=== PATIENT | male | born 1975 | race Caucasian/White ===

== ENCOUNTER 2016-11-12 22:59 | Emergency (ER) | payer SELFPAY ==
[2016-11-13 00:15] LABS: BILIRUBIN NEGATIVE (NEGATIVE); BLOOD NEGATIVE Ery/uL (NEGATIVE); CLARITY CLEAR (CLEAR); COLOR YELLOW (YELLOW); GLUCOSE (U) NORMAL (NORMAL); KETONE (U) NEGATIVE (NEGATIVE); LEUKOCYTES NEGATIVE Leu/uL (NEGATIVE); NITRITE NEGATIVE (NEGATIVE); PROTEIN NEGATIVE (NEGATIVE); SPECIFIC GRAVITY 1.015 (1.001-1.030); UROBILINOGEN 0.2 mg/dL (0.2-1.0); pH 6.5 (5.0-9.0)
[2016-11-13 00:16] LABS: BASOPHIL 0.4 % (0-2); EOSINOPHIL 1.3 % (0-5); HCT 44.5 % (42.0-52.0); HGB 15.3 g/dl (13.2-18.0); LYMPHOCYTE 18.1 % (15-48); MCH 29.7 pg (25.0-31.0); MCHC 34.4 g/dL (32.0-36.0); MCV 86.4 fL (78.0-100.0); MONOCYTE 8.6 % (0-12); MPV 11.1 fL (6.0-9.5); NEUTROPHIL 71.6 % (41-80); PLT 223 K/uL (150-400); RBC 5.15 M/uL (4.70-6.00); RDW 12.6 % (11.5-14.0); WBC 11.3 K/uL (4.0-10.5)
[2016-11-13 00:25] LABS: BILIRUBIN - TOTAL 0.2 mg/dL (0.1-1.0); CREATININE 1.5 mg/dL (0.7-1.2)
== END 2016-11-13 01:37 | disposition home or self-care (01) ==
LOC: FER 22:59
PROVIDERS: Emergency Medicine
DX: E86.0 Dehydration (principal); R06.02 Shortness of breath; M10.9 Gout, unspecified; Z79.899 Other long term (current) drug therapy
CPT/HCPCS: 36415; 80053; 81003; 84443; 85025; 93005

== ENCOUNTER 2017-01-12 16:00 | Emergency (ER) | payer OTHER, SELFPAY ==
[2017-01-12 16:56] LABS: BILIRUBIN NEGATIVE (NEGATIVE); BLOOD NEGATIVE Ery/uL (NEGATIVE); CLARITY CLEAR (CLEAR); COLOR YELLOW (YELLOW); GLUCOSE (U) NORMAL (NORMAL); KETONE (U) NEGATIVE (NEGATIVE); LEUKOCYTES NEGATIVE Leu/uL (NEGATIVE); NITRITE NEGATIVE (NEGATIVE); PROTEIN NEGATIVE (NEGATIVE); SPECIFIC GRAVITY 1.025 (1.001-1.030); UROBILINOGEN 0.2 mg/dL (0.2-1.0)
[2017-01-12 17:04] LABS: BASOPHIL 0.4 % (0-2); EOSINOPHIL 0.6 % (0-5); HCT 47.7 % (42.0-52.0); HGB 16.5 g/dl (13.2-18.0); LYMPHOCYTE 10.8 % (15-48); MCH 29.5 pg (25.0-31.0); MCHC 34.6 g/dL (32.0-36.0); MCV 85.3 fL (78.0-100.0); MONOCYTE 10.5 % (0-12); MPV 10.4 fL (6.0-9.5); NEUTROPHIL 77.7 % (41-80); PLT 201 K/uL (150-400); RBC 5.59 M/uL (4.70-6.00); RDW 13.2 % (11.5-14.0); WBC 9.8 K/uL (4.0-10.5)
[2017-01-12 17:23] LABS: ALBUMIN 4.2 g/dL (3.5-5.0); BILIRUBIN - TOTAL 0.3 mg/dL (0.1-1.0); CREATININE 1.4 mg/dL (0.7-1.2); GLOBULIN (CALCULATION) 3.2 g/dL (2.2-4.2); POTASSIUM 4.3 mmol/L (3.5-5.1); TOTAL PROTEIN 7.4 g/dL (6.4-8.3)
== END 2017-01-12 19:55 | disposition home or self-care (01) ==
LOC: FER 16:00
PROVIDERS: Nurse Practitioner Family
DX: N20.0 Calculus of kidney (principal); R11.10 Vomiting, unspecified; M10.9 Gout, unspecified; Z79.899 Other long term (current) drug therapy
CPT/HCPCS: 36415; 80053; 81003; 82150; 83690; 85025; 87339; J2405

== ENCOUNTER 2021-05-31 01:15 | Emergency (ER) | payer OTHER ==
[~2021-05-31 01:15] MED LIST: IBUPROFEN800 MG PO; KEFLEX500 MG PO; KETOROLAC TROME10 MG PO; LISINOPRIL-HCT1 EAC1 PO; LISINOPRIL-HCT1 EACH PO; LOPRESSOR50 MG PO; MEDROL 4MG DOSEP4 MG PO; NORCO 5-325 TA1 EACH PO; NORVASC2.5 MG PO; NORVASC5 MG PO; SUBOXONE 8 MG-1 EACH PO; VIBRAMYCIN100 MG PO
[2021-05-31 01:49] LABS: BASOPHIL 0.8 % (0-2); HCT 49.1 % (42.0-52.0); HGB 16.4 g/dl (13.2-18.0); LYMPHOCYTE 15.6 % (15-48); MCH 28.7 pg (25.0-31.0); MCHC 33.4 g/dL (32.0-36.0); MCV 85.8 fL (78.0-100.0); MONOCYTE 11.6 % (0-12); MPV 10.2 fL (6.0-9.5); NEUTROPHIL 69.1 % (41-80); NRBC 0; PLT 303 K/uL (150-400); RBC 5.72 M/uL (4.70-6.00); RDW 12.8 % (11.5-14.0); WBC 11.6 K/uL (4.0-10.5)
[2021-05-31 02:09] LABS: ALBUMIN 3.4 g/dL (3.4-5.0); BILIRUBIN - TOTAL 0.4 mg/dL (0.2-1.0); BUN/CREAT RATIO (CALC) 18.1 RATIO; CREATININE 1.6 mg/dL (0.67-1.17); GLOBULIN (CALCULATION) 4.2 g/dL; POTASSIUM 3.8 mmol/L (3.5-5.1); TOTAL PROTEIN 7.6 g/dL (6.4-8.2)
[2021-05-31 02:11] LABS: BILIRUBIN NEGATIVE (NEGATIVE); BLOOD 1+ Ery/uL (NEGATIVE); CLARITY CLEAR (CLEAR); COLOR YELLOW (YELLOW); GLUCOSE (U) NORMAL (NORMAL); LEUKOCYTES NEGATIVE Leu/uL (NEGATIVE); NITRITE NEGATIVE (NEGATIVE); PROTEIN NEGATIVE (NEGATIVE); SPECIFIC GRAVITY >=1.030 (1.001-1.030); UROBILINOGEN 0.2 mg/dL (0.2-1.0)
[2021-05-31 02:23] LABS: URINARY RBC RARE
[2021-05-31 03:09] LABS: AMPHETAMINES POSITIVE (NEGATIVE); BARBITURATES NEGATIVE (NEGATIVE); ECSTASY (MDMA) POSITIVE (NEGATIVE); MARIJUANA (THC) NEGATIVE (NEGATIVE); METHADONE NEGATIVE (NEGATIVE); OPIATES NEGATIVE (NEGATIVE); OXYCODONE NEGATIVE (NEGATIVE)
[2021-05-31] MEDS ORDERED: CARAFATE1 GM PO (07:20)
[2021-05-31] MEDS ORDERED: LEVSIN-SL0.125 M1 SL (07:20)
[2021-05-31] MEDS ORDERED: ONDANSETRON ODT4 MG SL (07:20)
[2021-05-31] MEDS ORDERED: PERCOCET 5-3251 EACH PO (07:20)
== END 2021-05-31 07:58 | disposition home or self-care (01) ==
LOC: FER 01:15
PROVIDERS: Emergency Medicine Emergency Medical Services
DX: K44.9 Diaphragmatic hernia without obstruction or gangrene (principal); I12.9 Hypertensive chronic kidney disease with stage 1 through stage 4 chronic kidney disease, or unspecified chronic kidney disease; N18.2 Chronic kidney disease, stage 2 (mild)
CPT/HCPCS: 36415; 71045; 80053; 80305; 81001; 83605; 83690; 85025; C9113; J1170; J1885; J2270; J2405; J2550; J7030; Q9967

== ENCOUNTER 2021-06-21 22:59 | Day surgery (SDCO) | payer OTHER ==
[~2021-06-21] VITALS: Ht 172.7 cm; Wt 86.3 kg
[~2021-06-21 22:59] MED LIST changes: +BACTRIM DS TAB1 EACH PO; +CARAFATE1 GM PO; +COZAAR50 MG PO; +LEVSIN-SL0.125 M1 SL; +NORVASC 10MG TA10 MG PO; +ONDANSETRON ODT4 MG SL; +PERCOCET 5-3251 EACH PO; +PRILOSEC20 MG PO
[2021-06-21 23:33] LABS: BASOPHIL 1.1 % (0-2); HCT 56.9 % (42.0-52.0); LYMPHOCYTE 17.9 % (15-48); MCH 29.1 pg (25.0-31.0); MCHC 33.4 g/dL (32.0-36.0); MONOCYTE 11.9 % (0-12); MPV 11.3 fL (6.0-9.5); NEUTROPHIL 66.2 % (41-80); NRBC 0; PLT 276 K/uL (150-400); RBC 6.54 M/uL (4.70-6.00); RDW 13.4 % (11.5-14.0); WBC 8.8 K/uL (4.0-10.5)
[2021-06-21 23:56] LABS: ALBUMIN 4.2 g/dL (3.4-5.0); BILIRUBIN - TOTAL 0.4 mg/dL (0.2-1.0); BUN/CREAT RATIO (CALC) 9.5 RATIO; CREATININE 1.89 mg/dL (0.67-1.17); GLOBULIN (CALCULATION) 4.6 g/dL; TOTAL PROTEIN 8.8 g/dL (6.4-8.2)
[2021-06-22 06:25] LABS: BILIRUBIN NEGATIVE (NEGATIVE); BLOOD TRACE-INTACT Ery/uL (NEGATIVE); CLARITY CLEAR (CLEAR); COLOR YELLOW (YELLOW); GLUCOSE (U) NORMAL (NORMAL); LEUKOCYTES NEGATIVE Leu/uL (NEGATIVE); NITRITE NEGATIVE (NEGATIVE); PROTEIN NEGATIVE (NEGATIVE); SPECIFIC GRAVITY >=1.030 (1.001-1.030); UROBILINOGEN 0.2 mg/dL (0.2-1.0)
[2021-06-22 06:33] LABS: AMPHETAMINES POSITIVE (NEGATIVE); BARBITURATES NEGATIVE (NEGATIVE); ECSTASY (MDMA) POSITIVE (NEGATIVE); MARIJUANA (THC) NEGATIVE (NEGATIVE); METHADONE NEGATIVE (NEGATIVE); OPIATES POSITIVE (NEGATIVE); OXYCODONE NEGATIVE (NEGATIVE)
[2021-06-22 06:35] LABS: BACTERIA 1+; SQUAMOUS EPITHELIAL CELLS RARE
[2021-06-22 08:22] LABS: BASOPHIL 0.9 % (0-2); EOSINOPHIL 2.4 % (0-5); HCT 52.8 % (42.0-52.0); HGB 17.2 g/dl (13.2-18.0); LYMPHOCYTE 17.5 % (15-48); MCH 28.6 pg (25.0-31.0); MCHC 32.6 g/dL (32.0-36.0); MCV 87.7 fL (78.0-100.0); MONOCYTE 11.8 % (0-12); MPV 10.1 fL (6.0-9.5); NEUTROPHIL 66.6 % (41-80); NRBC 0; PLT 239 K/uL (150-400); RBC 6.02 M/uL (4.70-6.00); RDW 13.4 % (11.5-14.0); WBC 9.3 K/uL (4.0-10.5)
[2021-06-22 08:32] LABS: INR 1.09 (0.9-1.2); PROTHROMBIN TIME 13.5 SECONDS (11.8-13.4)
[2021-06-22 08:46] LABS: BUN/CREAT RATIO (CALC) 11.6 RATIO; CREATININE 1.99 mg/dL (0.67-1.17); MAGNESIUM 2.3 mg/dL (1.8-2.4); PHOSPHORUS 4.4 mg/dL (2.6-4.7); POTASSIUM 5.2 mmol/L (3.5-5.1)
[2021-06-23 06:02] LABS: BASOPHIL 0.9 % (0-2); EOSINOPHIL 3.2 % (0-5); HCT 49.6 % (42.0-52.0); HGB 16.1 g/dl (13.2-18.0); LYMPHOCYTE 16.3 % (15-48); MCH 28.7 pg (25.0-31.0); MCHC 32.5 g/dL (32.0-36.0); MCV 88.4 fL (78.0-100.0); MONOCYTE 10.2 % (0-12); MPV 10.3 fL (6.0-9.5); NEUTROPHIL 68.8 % (41-80); NRBC 0; PLT 209 K/uL (150-400); RBC 5.61 M/uL (4.70-6.00); RDW 13.2 % (11.5-14.0); WBC 7.8 K/uL (4.0-10.5)
[2021-06-23 06:16] LABS: ALBUMIN 3.2 g/dL (3.4-5.0); BILIRUBIN - TOTAL 0.6 mg/dL (0.2-1.0); BUN/CREAT RATIO (CALC) 12.6 RATIO; CREATININE 1.59 mg/dL (0.67-1.17); GLOBULIN (CALCULATION) 3.6 g/dL; POTASSIUM 4.6 mmol/L (3.5-5.1)
[2021-06-23 06:25] LABS: TOTAL PROTEIN 6.8 g/dL (6.4-8.2)
--- NOTE | 2021-06-23 18:11 | NUR ---
PATIENT STATES THAT HE WAS VERY HAPPY WITH HIS CARE AND THAT EVERYONE HAS DONE A WONDERFUL JOB.
[2021-06-23] MEDS ORDERED: CLEOCIN300 MG PO (18:15)
== END 2021-06-23 18:41 | disposition home or self-care (01) ==
LOC: FER 22:59 → FMS 06-22 01:41
PROVIDERS: Internal Medicine; Nurse Practitioner; ADMIT Internal Medicine
DX: K44.9 Diaphragmatic hernia without obstruction or gangrene (principal); K56.600 Partial intestinal obstruction, unspecified as to cause; I12.9 Hypertensive chronic kidney disease with stage 1 through stage 4 chronic kidney disease, or unspecified chronic kidney disease; N18.30 Chronic kidney disease, stage 3 unspecified; L03.113 Cellulitis of right upper limb; F15.10 Other stimulant abuse, uncomplicated; Z20.822 Contact with and (suspected) exposure to COVID-19; R94.31 Abnormal electrocardiogram [ECG] [EKG]
CPT/HCPCS: 36415; 71045; 74019; 80048; 80053; 80305; 81001; 83605; 83690; 83735; 84100; 84145; 84484; 85025; 85610; 87040; 87088; 93005; 94010; C9113; G0378; J1170; J2060; J2250; J2270; J2405; J2543; J2704; J7030; J7120; Q9963; U0002

== ENCOUNTER 2022-01-17 21:07 | Emergency (ER) | payer OTHER ==
[~2022-01-17 21:07] MED LIST changes: +CLEOCIN300 MG PO
[2022-01-17] MEDS ORDERED: BACTRIM DS TAB1 EACH PO (22:00)
[2022-01-17] MEDS ORDERED: KEFLEX250 MG PO (22:00)
== END 2022-01-17 22:05 | disposition home or self-care (01) ==
LOC: FER 21:07
DX: L03.114 Cellulitis of left upper limb (principal); L03.113 Cellulitis of right upper limb; F19.90 Other psychoactive substance use, unspecified, uncomplicated; I12.9 Hypertensive chronic kidney disease with stage 1 through stage 4 chronic kidney disease, or unspecified chronic kidney disease; N18.2 Chronic kidney disease, stage 2 (mild); Z28.310 Unvaccinated for COVID-19; Z79.899 Other long term (current) drug therapy
CPT/HCPCS: 99283

== ENCOUNTER 2022-04-07 14:14 | Emergency (ER) | payer OTHER ==
[~2022-04-07 14:14] MED LIST changes: +KEFLEX250 MG PO
[2022-04-07] MEDS ORDERED: LISINOPRIL40 MG PO (16:45)
== END 2022-04-07 16:44 | disposition home or self-care (01) ==
LOC: FER 14:14
DX: I10 Essential (primary) hypertension (principal); F17.210 Nicotine dependence, cigarettes, uncomplicated; Z76.0 Encounter for issue of repeat prescription; Z28.310 Unvaccinated for COVID-19
CPT/HCPCS: 99283